=== PATIENT | female | born 2000 | race Caucasian/White ===

== ENCOUNTER 2018-11-18 16:25 | Emergency (ER) | payer SELFPAY ==
[2018-11-18] MEDS ORDERED: Ondansetron ODT TAB* 4 MG PO ONE (16:38)
[2018-11-18] MEDS ORDERED: Ibuprofen TAB* 600 MG PO ONE (16:38)
--- NOTE | 2018-11-18 17:01 | UC ---
General HPI - HPI Summary HPI Summary: 17-year-old woman comes in with a chief complaint of overall body jitters. Patient reports that she drank for 4 days, stopping yesterday. Today she's feeling jittery. She reports that all her muscles are twitching. Denies any chest pain or palpitations. No seizures. No vomiting no diarrhea. - History of Current Complaint Chief Complaint: UCGeneralIllness Stated Complaint: BODY SHAKING,LIGHTHEADED Time Seen by Provider: 11/18/18 16:49 Hx Last Menstrual Period: 11/06/18 Pain Intensity: 0 - Allergy/Home Medications Allergies/Adverse Reactions: Allergies Allergy/AdvReac Type Severity Reaction Status Date / Time No Known Allergies Allergy Verified 11/18/18 16:34 Home Medications: Home Medications NK [No Home Medications Reported] 11/18/18 [History Confirmed 11/18/18] PMH/Surg Hx/FS Hx/Imm Hx Previously Healthy: Yes - Surgical History Surgical History: Yes Surgery Procedure, Year, and Place: middle finger surgery - Family History Known Family History: Positive: Non-Contributory - Social History Alcohol Use: Occasionally Substance Use Type: None Smoking Status (MU): Never Smoked Tobacco Review of Systems All Other Systems Reviewed And Are Negative: Yes Constitutional: Positive: Other - see hpi Skin: Positive: Negative Eyes: Positive: Negative ENT: Positive: Negative Respiratory: Positive: Negative Cardiovascular: Positive: Negative Gastrointestinal: Positive: Nausea Genitourinary: Positive: Negative Motor: Positive: Negative Neurovascular: Positive: Negative Musculoskeletal: Positive: Other: - see hpi Neurological: Positive: Negative Psychological: Positive: Negative Is Patient Immunocompromised?: No Physical Exam Triage Information Reviewed: Yes Appearance: No Pain Distress, Well-Nourished, Ill-Appearing - mild Vital Signs: Initial Vital Signs Temp 98.9 F 11/18/18 16:30 Pulse 93 11/18/18 16:30 Resp 16 11/18/18 16:30 BP 126/60 11/18/18 16:30 Pulse Ox 97 11/18/18 16:30 Vital Signs Reviewed: Yes Eye Exam: Normal Eyes: Positive: Conjunctiva Clear ENT: Positive: Pharynx normal Neck exam: Normal Neck: Positive: Supple Respiratory: Positive: Lungs clear, Normal breath sounds, No respiratory distress Cardiovascular: Positive: RRR, Pulses Normal - No irregularity Musculoskeletal Exam: Normal Musculoskeletal: Positive: Strength Intact, ROM Intact Neurological Exam: Normal Neurological: Positive: Alert, Muscle Tone Normal Psychological Exam: Normal Psychological: Positive: Age Appropriate Behavior Skin Exam: Normal Course/Dx - Course Course Of Treatment: Patient improved in clinic after having Zofran 4 mg ODT by mouth and also ibuprofen 600 mg by mouth. She was able tolerate liquid and also some solid food. The overall plan is to not drink anymore alcohol and follow-up with her physician if not improved. Patient should be reevaluated sooner if she does worsen or has any other questions or concerns. - Diagnoses Provider Diagnosis: Alcohol withdrawal Discharge - Sign-Out/Discharge Documenting (check all that apply): Patient Departure All imaging exams completed and their final reports reviewed: No Studies - Discharge Plan Condition: Stable Disposition: HOME Patient Education Materials: Alcohol Withdrawal (ED) Referrals: [facility] [Outside] Additional Instructions: FOLLOW UP WITH YOUR DOCTOR IF NOT COMPLETELY IMPROVED. GET RECHECKED FOR ANY WORSENING OF YOUR CONDITION OR QUESTIONS OR CONCERNS. - Billing Disposition and Condition Condition: STABLE Disposition: Home
[2018-11-18 17:44] VITALS: BP 114/46
== END 2018-11-18 18:10 | disposition home or self-care (01) ==
LOC: UCCORT 16:25
DX: F10.239 Alcohol dependence with withdrawal, unspecified (principal)
CPT/HCPCS: 99202; A9270-GY; G0463